=== PATIENT | male | born 1990 | race Caucasian/White ===

== ENCOUNTER 2023-12-03 08:42 | Outpatient (CLI) | payer OTHER, SELFPAY | END 2023-12-03 08:43 | disposition home or self-care (01) | PROVIDERS: PCP Family Medicine; Visit Provider Family Medicine | DX: K52.9 Noninfective gastroenteritis and colitis, unspecified (principal) | CPT/HCPCS: 80053; 83516; 84443; 86140 ==

== ENCOUNTER 2024-04-15 07:35 | Outpatient (CLI) | payer OTHER, SELFPAY ==
--- OUTSIDE RECORDS SUMMARY | 2024-05-01 02:36 | XMS_ITS | Encounter Summary ---
Author Organization [facility] [facility] Address [address] [place] [address] Care Team Providers Care Debeaker Name Role Phone Myke Simmons MD Primary Care Provider Gina mcleod Encounter Details Date Type Department Care Team (Late st Contact Info) Description 03/18/1997 Office Visit [facility] [address] [place], [place] [id number] Social History Tobacco Use Types Packs/Day Years Used Date Smoking Tobacco: Never Assessed Sex and Gender Information Value Date Recorded Sex Assigned at Not on file Gender Identity Not on file Sexual Orientation Not on file documented as of this encounter Progress Notes * Ghazal Bajwa - 03/18/1997 12:00 AM CDTConnor's forms completed by teachers including Felicitas Devine his secondary social studies teacher, Mr. Godwin his Phy. Ed. teacher, his zoology teacher, and Cj Elliott the baton teacher. Concerns at the II level include restlessness, failing to finish what he starts, fidgeting, easily distracted and staring. This fidgeting and restlessness seem to be a common theme across several teacher questionnaires. Parent questionnaires are completed individually. They differ in that father reports no concerns of significance in any area and mother has significant concerns in learning problems, psychosomatic problems, anxiety, hyperactivity index, and impulsivity/hyperactivity. We will discuss these concerns at the first evaluation appointment for Cristo. cc: documented in this encounter Plan of Treatment Not on file documented as of this encounter Visit Diagnoses Not on filedocumented in this encounter Care Teams Debeaker Relationship Specialty Start Date End Date Myke Simmons MD PCP - General 09/13/08 documented as of this encounter
--- OUTSIDE RECORDS SUMMARY | 2024-05-01 02:36 | XMS_ITS | Encounter Summary ---
Author Organization [facility] Address [address] [place] [address] Care Team Providers Care Public Address System Mechanic Name Role Phone Myke Simmons MD Primary Care Provider Unavaila ble Encounter Details Date Type Department Care Team (Late st Contact Info) Description 02/10/1997 Orders Only [facility] Gamaliel So MD Bianac Social History Tobacco Use Types Packs/Day Years Used Date Smoking Tobacco: Never Assessed Sex and Gender Information Value Date Recorded Sex Assigned at Not on file Gender Identity Not on file Sexual Orientation Not on file documented as of this encounter Plan of Treatment Not on file documented as of this encounter Visit Diagnoses Not on filedocumented in this encounter Care Teams Public Address System Mechanic Relationship Specialty Start Date End Date Myke Simmons MD PCP - General 09/13/08 documented as of this encounter
--- OUTSIDE RECORDS SUMMARY | 2024-05-01 02:36 | XMS_ITS | Encounter Summary ---
Author Organization [facility] Address [address] [place] [address] Care Team Providers Care Production Control Technologist Name Role Phone Myke Simmons MD [facility] Encounter Details Date Type Department Care Team (Latest Contact Info) Description 04/10/1998 Orders Only Manda Mohr Social History Tobacco Use Types Packs/Day Years Used Date Smoking Tobacco: Never Assessed Sex and Gender Information Value Date Recorded Sex Assigned at Not on file Gender Identity Not on file Sexual Orientation Not on file documented as of this encounter Plan of Treatment Not on file documented as of this encounter Visit Diagnoses Not on filedocumented in this encounter Care Teams Production Control Technologist Relationship Specialty Start Date End Date Myke Simmons MD PCP - General 09/13/08 documented as of this encounter
--- OUTSIDE RECORDS SUMMARY | 2024-05-01 02:36 | XMS_ITS | Encounter Summary ---
Author Organization [facility] Address [address] [place] [address] Care Team Providers Care Mobile Patrol Officer Name Role Phone Myke Simmons MD Primary Care Provider Gina mcleod Encounter Details Date Type Department Care Team (Late st Contact Info) Description 01/23/2017 Correspondence None No Primary/Referring, Phy MEDICAL EQUIPMENT PROOF OF DELIVERY Social History Tobacco Use Types Packs/Day Years Used Date Smoking Tobacco: Never Smokeless Tobacco: Never Comments:NON 05/23/2003 Alcohol Use Standard Drinks/Week Comments Yes 0 (1 standard drink = 0.6 oz pur e alcohol) social Sex and Gender Information Value Date Recorded Sex Assigned at Not on file Gender Identity Not on file Sexual Orientation Not on file documented as of this encounter Plan of Treatment Not on file documented as of this encounter Visit Diagnoses Not on filedocumented in this encounter Care Teams Mobile Patrol Officer Relationship Specialty Start Date End Date Myke Simmons MD PCP - General 09/13/08 documented as of this encounter
--- OUTSIDE RECORDS SUMMARY | 2024-05-01 02:36 | XMS_ITS | Encounter Summary ---
Author Organization [facility] Address [address] [place] [address] Care Team Providers Care Water Project Manager Name Role Phone Myke Simmons MD Primary [facility] Provider [facility] Encounter Details Date Type Department Care Team (Latest Contact Info) Description 01/30/1995 Orders Only Marisol Beal Social History Tobacco Use Types Packs/Day Years Used Date Smoking Tobacco: Never Assessed Sex and Gender Information Value Date Recorded Sex Assigned at Not on file Gender Identity Not on file Sexual Orientation Not on file documented as of this encounter Plan of Treatment Not on file documented as of this encounter Visit Diagnoses Not on filedocumented in this encounter Care Teams Water Project Manager Relationship Specialty Start Date End Date Myke Simmons MD PCP - General 09/13/08 documented as of this encounter
--- OUTSIDE RECORDS SUMMARY | 2024-05-01 02:36 | XMS_ITS | Encounter Summary ---
Author Organization [facility] Address [address] [place] [address] Care Team Providers Care Commercial Lines Account Manager Name Role Phone Myke Simmons MD Primary Care Provider [facility] Encounter Details Date Type Department Care Team (Latest Contact Info) Description 05/16/1999 Orders Only Bev Tripathi MD Social History Tobacco Use Types Packs/Day Years Used Date Smoking Tobacco: Never Assessed Sex and Gender Information Value Date Recorded Sex Assigned at Not on file Gender Identity Not on file Sexual Orientation Not on file documented as of this encounter Plan of Treatment Not on file documented as of this encounter Visit Diagnoses Not on filedocumented in this encounter Care Teams Commercial Lines Account Manager Relationship Specialty Start Date End Date Myke Simmons MD PCP - General 09/13/08 documented as of this encounter
--- OUTSIDE RECORDS SUMMARY | 2024-05-01 02:36 | XMS_ITS | Clinical Summary ---
Author Organization [facility] Address [address] [place] [address] Care Team Providers Care Attache Name Role Phone Tyler Simmons MD Primary Care Provider Unavaila ble Source Comments You are receiving this document as you are listed as the primary care provider,follow-up provider, or the patient has been referred to you for consultation.This is in compliance with the Medicare andMedicaid EHR Incentive Program,which states Providers who transition their patient to another setting of careor provider of care or refers their patient to another provider of care shouldprovide summary care record for each transition of care or referral. [facility] Allergies Active Allergy Reactions Criticality Noted Date Comments Sulfa Antibiotics Tetracyclines & Related 11/13/2006 Trimethoprim Medications Medication Sig Dispensed Refills Start Date End Date Status fexofenadine (COLBY) 60 MG tabletIndications:Wh eezing Take 1 Tab by mouth at bedtime as needed. For night time wheezing 30 Tab prn 12/19/2010 Active multivitamin (AKA THERAGRAN) tablet Take 1 Tab by mouth daily. 30 Tab 11 05/08/2016 Active beclomethasone (QVAR) 40 MCG/ACT inhalerIndications:W heezing Inhale 2 Puffs two times a day. Rinse mouth/gargle after use 8.7 g 11 04/17/2017 Active VENTOLIN HFA 108 (90 Base) MCG/ACT inhaler USE 1-2 PUFFS BY MOUTH EVERY 6 HOURS NEEDED 54 g 1 06/16/2018 Active sertraline (ZOLOFT) 50 MG tabletIndications:Ad justment disorder with mixed anxiety and depressed mood (HRC) TAKE 1 TABLET BY MOUTH DAILY 90 Tablet 04/07/2019 Active Active Problems Problem Noted Date Diagnosed Date Adjustment disorder with mixed anxiety and depre ssed mood 01/26/2018 Wheezing 04/17/2017 Psychophysiological insomnia 02/04/2017 Chronic anemia 11/11/2016 Allergic rhinitis 07/29/2012 Resolved Problems Problem Noted Date Diagnosed Date Resolved Date Exercise-induced bronchospasm 07/29/2012 04/17/2017 Overview: Epic Acne 09/04/2006 07/29/2012 Closed fracture of navicular (scaphoid) bone of wrist 05/30/2006 07/29/2012 Intrinsic asthma without status asthmaticus 10/07/2003 07/29/2012 Overview: IN ASTHMA WOSTATUS ASTHMATICUS(aka ASTHMA) Hypertrophy of breast 10/07/20032011 Cough 06/16/2003 07/06/2003 Esophageal reflux 06/16/2003 07/05/2003 Overview: ESOPHAGEAL REFLUX(aka GERD) Immunizations Name Administration Dates Next Due DTP 04/14/1991, 9,1989,1988 DTaP 03/19/1994 Flu Vac (3+ yrs) 09/19/2016, 2,12/27/2009,2007,09/04/2006,10/10/2005 H1n1 Miv Sanofi 3+ Yr (Injected) 12/27/2009 HepA Ped/Adol (1-18 yrs) 05/16/2000,05/17/1999 HepB Ped/Adol (0-18 yrs) 10/17/2000,05/16/2000,0 04/15/2000 Hib (HbOC) 07/08/1990 Influenza IIV4 (Quadrivalent ) 0.5mL (25904) 11/30/2013 Influenza, Unspecified Formulation 08/24/2015 MCV4 (Menactra) 09/04/2006 MMR 08/14/1999,07/08/1990 OPV, Trivalent (Orimune or tOPV) 994,04/14/1991,1989,1988 TB Skin Test (PPD) 05/20/2003 Td 04/15/2000 Tdap 04/24/2009 Varicella 07/22/1997(Deferred: Immune by Mariusz helms) Family History Medical History Relation Name Comments Hypertension Father Asthma Mother Cataract Mother Glaucoma Negative Family History Macular Degeneration Negative Family History Relation Name Status Comments Father Alive Mother Alive Maternal Grandfather Heart A ttack Maternal Grandmother Alive Other Alive Paternal Grandfather Alive Paternal Grandmother Alive Sister Alive Social History Tobacco Use Types Packs/Day Years Used Date Smoking Tobacco: Never Smokeless Tobacco: Never Comments:NON 05/23/2003 Alcohol Use Standard Drinks/Week Comments Yes 0 (1 standard drink = 0.6 oz pur e alcohol) social Sex and Gender Information Value Date Recorded Sex Assigned at Not on file Gender Identity Not on file Sexual Orientation Not on file Last Filed Vital Signs Vital Sign Reading Time Taken Comments Blood Pressure 120/68 04/17/2017 11:47 AM CDT Pulse 72 04/17/2017 11:47 AM CDT Temperature 36.6 ??C (97.9 ??F) 01/10/2017 9:30 AM CS T Respiratory Rate 14 01/23/2017 4:29 PM BROACHING MACHINE OPERATOR Oxygen Saturation 100% 01/10/2017 9:30 AM BROACHING MACHINE OPERATOR Inhaled Oxygen Concentration - - Weight 81.2 kg (179 lb) 04/17/2017 11:47 AM CDT Height 188 cm (6' 2) 01/23/2017 4:29 PM BROACHING MACHINE OPERATOR Body Mass Index 22.98 01/23/2017 4:29 PM BROACHING MACHINE OPERATOR Plan of Treatment Health Maintenance Due Date Last Done Comments Hep C Screening (Preventive Services) 1989 HIV Screening (Preventive Services) 2005 Adult Preventive Visit 05/08/2018 6, 07/27/2008, 05/20/2003, Additional history exists DTaP/Tdap/Td (7 - Tdap) 04/24/2019 04/24/20 09, 04/15/2000, 03/19/1994, Additional history exists COVID-19 Vaccine ( season) 2023 Cholesterol 2024 05/08/2016 Influenza (Season Ended) 2024 016, 08/24/2015, 11/30/2013, Additional history exists Zoster/Shingles (1 of 2) 2039 Hib Completed 07/08/1990 IPV (Polio) Completed 03/19/1994, 03/31, 1989, Additional history exists HepA Completed 05/16/2000, 05/17/1999 HepB Completed 10/17/2000, 05/01, 04/15/2000 MCV4 Completed 09/04/2006 HPV Vaccine Aged Out No longer eligi ble based on patient's age to complete this topic Pneumococcal Aged Out No longer eligi ble based on patient's age to complete this topic Medical Devices Implanted Type Area Activity Specialist Device Identifier Shelf Expiration Date Model / Serial / Lot Scr Alfonso 20.0mm - [id number] Implanted:Qty: 1 on 11/19/2006 at [facility] DEVICE Left: [employer] AT-[id number] / / [id number] Procedures Procedure Name Priority Date/Time Associated Diagnosis Comments CHOLESTEROL, TOTAL AND HDL Routine 05/08/2016 10:40 AM CDT Screening for lipoid disorders from Last 3 Months or Most Recently Relevant to Health Maintenance Results * Cholesterol, Total and HDL (05/08/2016 10:40 AM CDT) Cholesterol 150 0 - 199 mg/dl [facility] HDL 53 >40 mg/dl [facility] Non HDL Chol, Calc 97 mg/dl [facility] 05/08/2016 10:4 0 AM CDT 05/08/2016 10:49 AM CDT Narrative [facility] - 05/08/2016 4:02 PM CDT Performed at [facility], [address] [place] [address] ??[id number] Tyler Simmons MD LAB_1 [facility] [phone] from Last 3 Months or Most Recently Relevant to Health Maintenance Care Teams Attache Relationship Specialty Start Date End Date Tyler Simmons MD PCP - General 09/13/08
--- OUTSIDE RECORDS SUMMARY | 2024-05-01 02:36 | XMS_ITS | Encounter Summary ---
Author Organization [facility] Address [address] [address] Care Team Providers Care Assistant Executive Housekeeper Name Role Phone Myke Simmons MD Primary Care Provider [facility] Encounter Details Date Type Department Care Team (Latest Contact Info) Description 07/22/1997 Orders Only Jarad Ramirez MD [address] [place], [place] [id number] Social History Tobacco Use Types Packs/Day Years Used Date Smoking Tobacco: Never Assessed Sex and Gender Information Value Date Recorded Sex Assigned at Not on file Gender Identity Not on file Sexual Orientation Not on file documented as of this encounter Plan of Treatment Not on file documented as of this encounter Visit Diagnoses Not on filedocumented in this encounter Care Teams Assistant Executive Housekeeper Relationship Specialty Start Date End Date Myke Simmons MD PCP - General 09/13/08 documented as of this encounter
== END 2024-04-15 07:36 | disposition home or self-care (01) ==
LOC: NFLDREF 05-01 02:34
PROVIDERS: PCP Family Medicine; Referring Provider Family Medicine; Visit Provider Family Medicine
DX: Z13.220 Encounter for screening for lipoid disorders (principal); Z13.1 Encounter for screening for diabetes mellitus
CPT/HCPCS: 80061; 82947